=== PATIENT | male | born 1990 | race Two or more races ===

== ENCOUNTER 2017-02-05 16:04 | Emergency (ER) | payer MEDICAID, OTHER ==
[~2017-02-05] VITALS: Ht 177.8 cm; Wt 75.3 kg
--- NOTE | 2017-02-05 16:41 | NUR ---
L SIDED CHEST PAIN UPON BREATHING AND PALPATION S/P BELLY FLOP IN POOL. AWAITING MD ORDER
[2017-02-05] MEDS ORDERED: ASPIRIN 325 MG TABLET ONE (17:37)
[2017-02-05] MEDS: ASPIRIN 325 MG TABLET PO ONE (17:39)
--- NOTE | 2017-02-05 18:06 | NUR ---
Patient discharged to home in stable condition. Written and verbal after care instructions given. Patient verbalizes understanding of instruction.
[2017-02-05 18:07] VITALS: BP 138/75
== END 2017-02-05 18:11 | disposition home or self-care (01) ==
LOC: ER 16:06
DX: M94.0 Chondrocostal junction syndrome [Tietze] (principal); F17.200 Nicotine dependence, unspecified, uncomplicated
CPT/HCPCS: 71010-TC; A4606; Z7610